=== PATIENT | female | born 1935 | race African-American/Black ===

== ENCOUNTER 2019-07-13 10:41 | Emergency (ER) | payer MEDICARE, OTHER ==
[~2019-07-13] VITALS: Ht 165.1 cm; Wt 114.0 kg
[2019-07-13 14:04] VITALS: BP 150/64
[2019-07-13] MEDS ORDERED: NAPROXEN 250MG TABLET PO NR (14:30)
== END 2019-07-13 14:44 | disposition home or self-care (01) ==
LOC: ER 10:41
DX: S92.311A Displaced fracture of first metatarsal bone, right foot, initial encounter for closed fracture (principal); E11.9 Type 2 diabetes mellitus without complications; I10 Essential (primary) hypertension; Z96.659 Presence of unspecified artificial knee joint; Z90.710 Acquired absence of both cervix and uterus; Z98.890 Other specified postprocedural states; W18.39XA Other fall on same level, initial encounter; Y93.89 Activity, other specified; Y92.89 Other specified places as the place of occurrence of the external cause; Y99.8 Other external cause status
CPT/HCPCS: 29515; 99283